=== PATIENT | male | born 1980 | race Hispanic/Latino ===

== ENCOUNTER 2020-06-09 14:48 | Observation (INO) | payer MEDICAID ==
[~2020-06-09] VITALS: Ht 152.4 cm; Wt 82.5 kg
[2020-06-09 15:19] LABS: BASOPHILS % (AUTO) 0.4 % (0.0-5.0); EOSINOPHILS % (AUTO) 3.5 % (0.0-8.0); HEMATOCRIT 39.9 % (42-54); MEAN CORPUSCULAR HEMOGLOBIN 31.5 pg (27.0-33.0); MEAN CORPUSCULAR HGB CONC 35.3 g/dL (32.0-36.0); MEAN CORPUSCULAR VOLUME 89.1 fL (79-99); NEUTROPHILS % (AUTO) 61.9 % (40.0-77.0); PLATELET COUNT (AUTO) 182 K/uL (130-400); RED BLOOD CELL COUNT(AUTO) 4.48 MIL/uL (4.50-6.20); RED CELL DISTRIBUTION WIDTH 12.1 % (11.0-15.5); WHITE BLOOD COUNT (AUTO) 4.5 K/uL (4.8-10.8)
[2020-06-09 15:27] LABS: ABG BASE EXCESS 2.5 mmol/L (-2.0-3.0); ABG HCO3 27.3 mmol/L (21.0-28.0); ABG OXYGEN SATURATION 95.8 % (95.0-99.0); ABG PCO2 43 mmHg (35-48)
[2020-06-09 15:31] LABS: INR 1.08 (0.85-1.15); PROTHROMBIN TIME 11.5 SEC (9.6-11.6)
[2020-06-09 15:32] LABS: PARTIAL THROMBOPLASTIN TIME 30.9 SEC (26.3-35.5)
[2020-06-09] MEDS ORDERED: ALBUTEROL INHALER 90MCG/INH IH ONE (15:42)
[2020-06-09] MEDS ORDERED: AZITHROMYCIN 250 MG TABLET PO ONE (15:43)
[2020-06-09] MEDS ORDERED: DEXAMETHASONE SOD PHOSPHATE 10MG/ML 1ML VIAL ONE (15:43)
[2020-06-09] MEDS ORDERED: CEFTRIAXONE SODIUM 1 GM ONE (15:43)
[2020-06-09 15:51] LABS: CARBON DIOXIDE 26 mmol/L (21-32); CHLORIDE 103 mmol/L (101-111); CREATININE 0.7 mg/dL (0.5-1.5); GLOMERULAR FILTR. RATE CALC 134 mL/min (>60); GLUCOSE,RANDOM 120 mg/dL (70-105); POTASSIUM 3.2 mmol/L (3.5-5.1); SODIUM SERUM 140 mmol/L (136-145); UREA NITROGEN, BLOOD 14 mg/dL (7-18)
[2020-06-09 16:02] LABS: ALANINE AMINOTRANSFERASE 25 U/L (12-78); ALBUMIN 2.8 g/dL (3.5-5.0); ASPARTATE AMINOTRANSFERASE 20 U/L (10-37); BILIRUBIN,TOTAL 0.4 mg/dL (0.2-1.0); CREATINE KINASE, TOTAL 93 U/L (21-232); LIPASE 177 U/L (114-286); MYOGLOBIN 29 ng/mL (10-92); TROPONIN I < 0.04 ng/mL (0.00-0.06)
[2020-06-09] MEDS ORDERED: DOXYCYCLINE 100MG+NS 250ML 250 ML IV SCH (17:30)
[2020-06-09] MEDS ORDERED: ONDANSETRON HCL 4 MG/2 ML VIAL IV PRN (17:30)
[2020-06-09] MEDS ORDERED: CEFTRIAXONE SODIUM 1 GM IVP SCH (17:30)
[2020-06-09] MEDS ORDERED: LIDOCAINE HCL-MPF 1% 2ML VIAL IV PRN (17:45)
[2020-06-09] MEDS ORDERED: ALBUTEROL INHALER 90MCG/INH IH PRN (17:45)
[2020-06-09] MEDS ORDERED: POTASSIUM CHLORIDE 20MEQ/100ML 100 ML IV PRN (17:45)
[2020-06-09] MEDS ORDERED: MAGNESIUM 2GM PREMIX 50ML 50 ML IV PRN (17:45)
[2020-06-09 18:21] LABS: BILIRUBIN,URINE Small (NEGATIVE); COLOR,URINE Dark Yellow (YELLOW); GLUCOSE, URINE (UA) Negative (NEGATIVE); KETONES,URINE Trace mg/dL (NEGATIVE); LEUKOCYTE ESTERASE ,URINE Trace (NEGATIVE); NITRATE,URINE Negative (NEGATIVE); OCCULT BLOOD,URINE Negative (NEGATIVE); PH,URINE 6.5 (5.0-8.0); PROTEIN,URINE POS 1+ mg/dL (NEGATIVE)
[2020-06-09 18:23] LABS: APPEARANCE,URINE SLIGHTLY CLOUDY (CLEAR)
[2020-06-09] MEDS ORDERED: LIDOCAINE HCL-MPF 1% 2ML VIAL ONE (18:31)
[2020-06-09] MEDS ORDERED: POTASSIUM CHLORIDE 20MEQ/100ML 100 ML IV ONE (18:32)
[2020-06-09 19:04] LABS: BACTERIA,URINE Rare /HPF (None Seen); RBC,URINE 0-1 /HPF (0-1)
[2020-06-09 19:05] LABS: SQUAMOUS EPITHELIAL CELL,UR Rare /HPF (0-2)
[2020-06-09] MEDS ORDERED: MAGNESIUM 2GM PREMIX 50ML 50 ML IV ONE (20:36)
[2020-06-09] MEDS ORDERED: FAMOTIDINE/PF 20 MG/2 ML VIAL IV SCH (21:00)
[2020-06-09] MEDS ORDERED: IBUP-2070 PO (21:58)
[2020-06-09] MEDS ORDERED: LEVO500T89 PO (21:58)
[2020-06-09] MEDS ORDERED: DOXYCYCLINE 100MG+NS 250ML 250 ML IV ONE (22:33)
[2020-06-10] MEDS ORDERED: DEXAMETHASONE SOD PHOSPHATE 4 MG/ML 1ML VIAL IVP SCH (09:00)
== END 2020-06-09 23:03 | disposition home or self-care (01) ==
LOC: EDH 14:48 → INTOOBSV 14:49 → EDHIP 14:49
PROVIDERS: ADMIT Internal Medicine; ATTEND Internal Medicine
DX: U07.1 COVID-19 (principal); J12.82 Pneumonia due to coronavirus disease 2019; F84.0 Autistic disorder; J96.21 Acute and chronic respiratory failure with hypoxia; G40.909 Epilepsy, unspecified, not intractable, without status epilepticus; E66.9 Obesity, unspecified; Z79.899 Other long term (current) drug therapy; Z68.35 Body mass index [BMI] 35.0-35.9, adult
CPT/HCPCS: 36415; 36600; 71045; 80053; 81001; 82550; 82803; 83605; 83690; 83735; 83874; 84145; 84484; 85025; 85610; 85730; 86140; 86900; 86901; 87040 ×2; 87088; 87426; 87880; 93005; 99285; G0378 ×6; J0696; J1100; J3475; J3480; J3490 ×2; U0003